=== PATIENT | female | born 1950 | race Caucasian/White ===

== ENCOUNTER 2016-12-13 06:11 | Inpatient (IN) | payer MEDICARE, OTHER ==
--- NOTE | 2016-12-12 08:45 | HP ---
[facility] - Chief Complaint Chief Complaint: right knee pain - Past Medical History Allergies/Adverse Reactions: Allergies Allergy/AdvReac Type Severity Reaction Status Date / Time No Known Drug Allergies Allergy Verified 12/07/16 13:08 - Current Medications Current Medications: Home Medications Medication Instructions Recorded Ferrous Sulfate 325 mg PO DAILY 12/07/16 Meclizine HCl 25 mg PO ASDIR PRN 12/07/16 Satellite Physical Exam - Physical Examination General Appearance: Well Nourished, Well Developed, Alert & Oriented x3 ENT: Clear Lung: Normal air movement Heart: Regular rate & rhythm Extremities: Other (right knee- + swelling, + ttp ,decr rom, nvi xrays show severe tricompartmental djd) Neurological: Intact, Alert, Oriented Satellite Impression/Plan - Impression/Plan Impression: right knee djd Operative Procedure: right crow tkr Date to be Performed: 12/13/16
[2016-12-13] MEDS ORDERED: CEFAZOLIN 1 GM/D5W 50 ML IVPB ONE (06:24)
[2016-12-13] MEDS ORDERED: TRANEXAMIC ACID 1000 MG/10 ML VIAL IVPUSH ONE (06:24)
[2016-12-13] MEDS ORDERED: ceFAZolin SODIUM 1 GM VIAL ONE ×2 (06:29→07:54)
[2016-12-13] MEDS ORDERED: VANCOMYCIN 1,000 MG VIAL (RESTRICTED TO ID ONLY) ONE (06:29)
[2016-12-13] MEDS: GABAPENTIN 300 MG CAPSULE (FP) PO ONE ×2 (06:30→19:13)
[2016-12-13] MEDS: CELECOXIB 200 MG CAPSULE PO ONE ×2 (06:30→19:13)
[2016-12-13] MEDS: oxyCODONE HCL 10 MG SUSTAINED ACTING TABLET PO ONE ×2 (06:30→19:13)
[2016-12-13 06:43] VITALS: BMI 26.2
[2016-12-13] MEDS ORDERED: MIDAZOLAM HCL 2 MG/2 ML SINGLE DOSE VIAL ONE (07:16)
[2016-12-13] MEDS ORDERED: DEXAMETHASONE SOD PHOSPHATE/PF 10 MG/ML SDV ONE (07:16)
[2016-12-13] MEDS ORDERED: ROPIVACAINE HCL 0.5% 30ML VIAL ONE (07:16)
[2016-12-13] MEDS ORDERED: ONDANSETRON 4 MG/2 ML VIAL ONE (07:54)
[2016-12-13] MEDS ORDERED: TRANEXAMIC ACID 1000 MG/10 ML VIAL ONE (07:54)
[2016-12-13] MEDS ORDERED: DEXAMETHASONE SOD PHOSPHATE 4 MG/1 ML VIAL ONE (07:54)
[2016-12-13] MEDS ORDERED: VANCOMYCIN 1,000 MG VIAL (RESTRICTED TO ID ONLY) IVPB ONE (08:48)
[2016-12-13] MEDS ORDERED: MAG HYDROX/AL HYDROX/SIMETH 30 ML UNIT-DOSE CUP PO PRN (09:14)
[2016-12-13] MEDS ORDERED: MAGNESIUM HYDROX 2400MG/30ML ORAL SUSPENSION 30 ML CUP PO PRN (09:14)
[2016-12-13] MEDS ORDERED: LACTATED RINGERS SOLUTION 1,000 ML IV SCH (09:15)
--- NOTE | 2016-12-13 09:17 | OP ---
Operative Note - Note: Operative Date: 12/13/16 (monse) Pre-Operative Diagnosis: right knee djd Operation: right crow tkr Post-Operative Diagnosis: Same as Pre-op Surgeon: Stan Metzger [employer] Manager: Tripp Stanton Anesthesiologist/[employer] MANAGER: Sandi Singer Anesthesia: Spinal, Local Specimens Removed: bone fragments Estimated Blood Loss (mls): 50 (tourniquet) Operative Report Dictated: Yes
[2016-12-13] MEDS ORDERED: oxyCODONE HCL 5 MG TABLET PO PRN (09:30)
[2016-12-13] MEDS: ACETAMINOPHEN 325 MG TABLET (FP) PO SCH ×3 (10:02→21:57)
[2016-12-13] MEDS: oxyCODONE HCL 5 MG TABLET PO PRN ×3 (10:25→17:57)
[2016-12-13] MEDS: CEFAZOLIN 1 GM/D5W 50 ML IVPB SCH ×2 (16:00→23:55)
--- NOTE | 2016-12-13 16:01 | OP ---
DATE OF OPERATION: 12/13/2016 PREOPERATIVE DIAGNOSIS: Degenerative joint disease, right knee. POSTOPERATIVE DIAGNOSIS: Degenerative joint disease, right knee. PROCEDURE: Right total knee replacement with robotic-assisted navigation (MAKOplasty). SURGICAL ATTENDING: Stan Metzger MD ARCHITECT MARINE: LORRIE Russell ANESTHESIA: Regional and spinal. CLOSURE: A Press-Fit triathlon knee system with a 3 femur, 3 tibia, 9 polyethylene, 32 patella. No. 1 Vicryl for the fascia, 0 and 2-0 subcutaneous, 3-0 Monocryl subcuticular, skin glue for skin, 4-0 undyed Vicryl for pin sites. ESTIMATED BLOOD LOSS: Negligible. TOURNIQUET TIME: Approximately 60 minutes. COMPLICATIONS: None. CONDITION: To recovery room in stable condition. DESCRIPTION OF OPERATIVE PROCEDURE: Patient was taken to the operating room on December 13, 2016. Regional and spinal anesthesia were administered by the anesthesiologist. IV Kefzol and TXA were administered prophylactically prior to the case. A well-padded pneumatic tourniquet was placed on the right proximal thigh. The right lower extremity was prepped and draped in the usual sterile fashion. The leg was exsanguinated with an Esmarch bandage. Tourniquet was inflated to 275 mmHg. A 10-to-12-cm longitudinal midline incision centered over the patella was incised. Hemostasis was achieved using Bovie cautery. Sharp dissection was carried down to the level of the extensor mechanism which was sufficient for us to perform the procedure. A medial parapatellar arthrotomy was then performed and the patella was everted and the knee was flexed up. Fat pad was excised. Subperiosteal dissection was done in the anterior medial proximal tibia until the tibia was able to be brought forward. This was facilitated by taking the ACL and PCL and the menisci and anterior and posterior cruciate ligaments. Partial fat pad excision was performed as well. Checkpoints were malleted into both the medial femoral condyle and the proximal tibia. Through 2 small stab incisions distally, 2 bicortical pins were drilled in the tibia. Through the previously-made incisions at the superior aspect, 2 pins were placed unicortically until they touched the posterior femoral cortex. To these pins were attached the femoral and tibial arrays. The knee was then registered with the navigation device with center of rotation of the hip, medial and lateral malleoli, and multiple sites both on the tibia and the femur. The proper registration was confirmed by "popping the bubbles." The osteophytes were then removed throughout. The knee was tensioned in extension and flexion in both varus and valgus stress to ascertain the gaps. The virtual position of the components was then optimized to balance these gaps. The robot was then brought in the field and registered. The robot was then used to cut the femur and the tibia as per specifications on the virtual plan. The box was then made in the femur. Trial number 3 was applied and achieved good fit. A number 3 tibial baseplate was then clipped into the plate with the appropriate external rotation as directed by the navigation device. A trial 9 polyethylene achieved excellent stability throughout and excellent range of motion. The patella was calipered for thickness and then osteotomized to the appropriate level. A 32 lollipop was used to drill the lug holes in the patella, and a trial component was applied. The knee was taken through a range of motion and had excellent tracking of the patella and good stability throughout from full extension to full flexion. The lug holes were drilled in the femur. The keel was malleted in the tibia. Trial components were removed. The knee was pulse-antibiotic irrigated. The real Press-Fit components were then malleted into place, the femur, tibia, and the patella, and then, a 9 polyethylene component was clipped into place. Range of motion and stability and tracking were as described earlier. The knee was thoroughly irrigated with antibiotic irrigation. The parapatellar arthrotomy was closed with No. 1 Vicryl. Prior to doing so, vancomycin powder was placed into the wound. No. 1 Vicryl for the fascia. The subcutaneous was then pulse-antibiotic irrigated. The subcutaneous was closed with 0 and 2-0 and 3-0 Monocryl for subcuticular with skin glue, 4-0 undyed Vicryl for the pin sites. This was done after the pins and checkpoints were removed. Sterile pressure dressing was applied. Tourniquet was deflated. Total tourniquet time was approximately 60 minutes. No complications. Brenda [id number]
[2016-12-13] MEDS: MULTIVITAMINS (DAILY MVI) TABLET (FP) PO SCH (19:13)
[2016-12-13] MEDS: GABAPENTIN 300 MG CAPSULE (FP) PO SCH ×2 (19:14→21:57)
[2016-12-13] MEDS: FERROUS SO4 325 MG TABLET (FP) PO SCH (19:14)
[2016-12-13] MEDS: PANTOPRAZOLE 40 MG TABLET (FP) PO SCH (19:14)
[2016-12-13] MEDS: SENNOSIDES/DOCUSATE COMBO (SENNA PLUS) TABLET (UD) PO SCH ×2 (19:15→21:57)
[2016-12-13] MEDS: oxyCODONE HCL 10 MG SUSTAINED ACTING TABLET PO SCH ×2 (19:15→21:57)
[2016-12-13] MEDS: ONDANSETRON 4 MG/2 ML VIAL IVPB PRN (20:25)
[2016-12-14] MEDS: ACETAMINOPHEN 325 MG TABLET (FP) PO SCH ×4 (03:30→21:15)
[2016-12-14] MEDS: ASPIRIN 325 MG TABLET PO SCH (08:00)
--- NOTE | 2016-12-14 08:35 | PN ---
Progress Note (short form) - Note Progress Note: 66F POD1 s/p R TKR under spinal anesthetic with adductor canal and selective tibial blocks. Pt doing well, states that her pain is well controlled, reports some nausea likely from pain medication, improving with zofran. Sensory and motor function intact in both lower extremities.
--- NOTE | 2016-12-14 08:40 | PN ---
Progress Note (short form) - Note Progress Note: Ortho Pt seen and examined s/p right crow tkr pod #1 Selected Entries 12/13/16 22:00 Temperature 98.6 F Pulse Rate 87 Respiratory 16 Rate Blood Pressure 112/64 Laboratory Tests 12/14/16 07:00 WBC Pending Hgb Pending Hct Pending Plt Count Pending dressing c/d/i, calf soft, nt rom 0-50, nvi a/p PT dvt ppx pain control d/c homw tomorrow if stable
[2016-12-14 08:45] LABS: MCHC 35.5 g/dl (32.0-36.0); MEAN CELL VOLUME 92.8 fl (80-96); MEAN PLT VOLUME 8.3 fl (7.5-11.1); PLATELET COUNT 200 K/MM3 (134-434); RDW 12.9 % (11.6-15.6)
[2016-12-14] MEDS: ONDANSETRON 4 MG/2 ML VIAL IVPB PRN (08:58)
[2016-12-14] MEDS: SENNOSIDES/DOCUSATE COMBO (SENNA PLUS) TABLET (UD) PO SCH ×2 (09:02→21:16)
[2016-12-14] MEDS: oxyCODONE HCL 10 MG SUSTAINED ACTING TABLET PO SCH ×2 (09:02→21:16)
[2016-12-14] MEDS: FERROUS SO4 325 MG TABLET (FP) PO SCH (09:02)
[2016-12-14] MEDS: MULTIVITAMINS (DAILY MVI) TABLET (FP) PO SCH (09:03)
[2016-12-14] MEDS: PANTOPRAZOLE 40 MG TABLET (FP) PO SCH (09:03)
[2016-12-14] MEDS: GABAPENTIN 300 MG CAPSULE (FP) PO SCH ×2 (09:07→21:16)
[2016-12-14 22:37] VITALS: TEMP 98.5
[2016-12-15] MEDS: ACETAMINOPHEN 325 MG TABLET (FP) PO SCH ×2 (05:30→09:08)
[2016-12-15 06:46] VITALS: BP 130/66; PULSE 87
[2016-12-15] MEDS: ASPIRIN 325 MG TABLET PO SCH (08:05)
[2016-12-15 08:20] LABS: MCH 32.1 pg (25.7-33.7); MCHC 34.7 g/dl (32.0-36.0); MEAN CELL VOLUME 92.6 fl (80-96); MEAN PLT VOLUME 8.3 fl (7.5-11.1); PLATELET COUNT 177 K/MM3 (134-434); RDW 12.9 % (11.6-15.6); WHITE BLOOD COUNT 9.9 K/mm3 (4.0-10.8)
[2016-12-15] MEDS: SENNOSIDES/DOCUSATE COMBO (SENNA PLUS) TABLET (UD) PO SCH (09:07)
[2016-12-15] MEDS: MULTIVITAMINS (DAILY MVI) TABLET (FP) PO SCH (09:07)
[2016-12-15] MEDS: FERROUS SO4 325 MG TABLET (FP) PO SCH (09:07)
[2016-12-15] MEDS: oxyCODONE HCL 10 MG SUSTAINED ACTING TABLET PO SCH (09:08)
[2016-12-15] MEDS: PANTOPRAZOLE 40 MG TABLET (FP) PO SCH (09:08)
[2016-12-15] MEDS: GABAPENTIN 300 MG CAPSULE (FP) PO SCH (09:08)
--- NOTE | 2016-12-16 11:22 | PATH ---
Surgical Pathology Report Patient Name: LATANYA VASQUEZ Med. Rec. #: [id number] /Age/Gender: 1950 (Age: 66) / F Account: [id number] Location: [facility] Taken: 12/13/2016 Received: 12/13/2016 Reported: 12/16/2016 Physicians: Stan Metzger M.D. Specimen(s) Received RIGHT KNEE BONE AND TISSUE Clinical History Right knee osteoarthritis Final Diagnosis BONE AND SOFT TISSUE, RIGHT KNEE, REPLACEMENT: DEGENERATIVE JOINT DISEASE. Electronically Signed Kory Nieves M.D. Gross Description The specimen is received in formalin, labeled "right knee bone and tissue" and consists of multiple irregular portions of bone from a knee joint admixed with irregular portions of soft sena-yellow adipose tissue, synovial tissue and fibrocartilage. The specimen measures 10.5 x 7.5 x 2.5 cm. in aggregate. The tibial plateau and portions of the femoral condyles are identified with sena-chang, eroded and granular articular surfaces. The cut surfaces are light yellow and show hard trabecular bone. Medical Dosimetrist sections are submitted in one cassette after decalcification. AF/12/14/2016 final/12/14/2016
== END 2016-12-15 12:28 | disposition home health service (06) | DRG 470 ==
LOC: FM/S 06:11
PROVIDERS: ADMIT Orthopaedic Surgery; ATTEND Orthopaedic Surgery
PROC: 8E0Y0CZ Robotic Assisted Procedure of Lower Extremity, Open Approach (ICD-10-PCS; 2016-12-13)
PROC: 0SRC0JA Replacement of Right Knee Joint with Synthetic Substitute, Uncemented, Open Approach (ICD-10-PCS; principal; 2016-12-13 08:05)
DX: M17.11 Unilateral primary osteoarthritis, right knee (principal)
CPT/HCPCS: 36415; 73560-TC-RT; 85027; 88304-TC; 88311-TC; 94010; 94760; 97010-GP; 97116-GP; 97161-GP